=== PATIENT | male | born 1985 | race Two or more races ===

== ENCOUNTER 2024-02-27 17:10 | Emergency (ER) | payer OTHER ==
[~2024-02-27] VITALS: Ht 172.7 cm; Wt 82.0 kg
[2024-02-27 17:49] VITALS: BP 145/89; PULSE 98; TEMP 98.1; O2SAT 99
[2024-02-27] MEDS ORDERED: CEPH-585 PO (18:45)
[2024-02-27] MEDS ORDERED: SULF1TAB49 PO (18:45)
[2024-02-27] MEDS: sulfamethoxazole/trimethoprim DS (800/160mg) tablet PO ONE (19:23)
[2024-02-27] MEDS: CefTRIAXone 1000mg IM Kit (w/lidocaine diluent) IM ONE (19:25)
[2024-02-27 19:27] VITALS: RESP 20
== END 2024-02-27 19:29 | disposition home or self-care (01) ==
LOC: ER 17:11
DX: S90.922A Unspecified superficial injury of left foot, initial encounter (principal); L03.116 Cellulitis of left lower limb; X58.XXXA Exposure to other specified factors, initial encounter; Y93.89 Activity, other specified; Y92.89 Other specified places as the place of occurrence of the external cause; Y99.8 Other external cause status
CPT/HCPCS: 87070; 96372; 99283; J0696; 87077; 87186